=== PATIENT | male | born 1950 | race Two or more races ===

== ENCOUNTER 2018-01-07 10:19 | Outpatient (CLI) | payer OTHER | END 2018-01-07 10:24 | disposition home or self-care (01) | LOC: SONOGRAMA 10:19 | DX: E04.2 Nontoxic multinodular goiter (principal) ==

== ENCOUNTER 2018-08-12 11:11 | Outpatient (CLI) | payer OTHER | END 2018-08-12 11:13 | disposition home or self-care (01) | LOC: SONOGRAMA 11:11 | DX: E04.1 Nontoxic single thyroid nodule (principal) ==